=== PATIENT | female | born 1980 | race Two or more races ===

== ENCOUNTER 2020-10-01 13:50 | Outpatient (CLI) | payer OTHER | END 2020-10-01 13:51 | disposition home or self-care (01) | LOC: NUCLEAR 13:50 | PROVIDERS: ATTEND Internal Medicine Sports Medicine | DX: C73 Malignant neoplasm of thyroid gland (principal) | CPT/HCPCS: 79005; A9517 ==

== ENCOUNTER 2020-10-08 14:44 | Outpatient (CLI) | payer OTHER | END 2020-10-08 14:59 | disposition home or self-care (01) | LOC: NUCLEAR 14:44 | PROVIDERS: ATTEND Internal Medicine Sports Medicine | DX: C73 Malignant neoplasm of thyroid gland (principal); E89.0 Postprocedural hypothyroidism | CPT/HCPCS: 78018; 78020; A9528 ==

== ENCOUNTER 2021-10-28 13:29 | Outpatient (CLI) | payer OTHER | END 2021-10-28 13:30 | disposition home or self-care (01) | LOC: NUCLEAR 13:29 | PROVIDERS: ATTEND Internal Medicine Sports Medicine | DX: C73 Malignant neoplasm of thyroid gland (principal); E89.0 Postprocedural hypothyroidism | CPT/HCPCS: 78014; A9531 ==

== ENCOUNTER 2023-02-02 13:00 | Outpatient (CLI) | payer OTHER | END 2023-02-02 13:02 | disposition home or self-care (01) | LOC: NUCLEAR 13:00 | PROVIDERS: ATTEND Internal Medicine Sports Medicine | DX: C73 Malignant neoplasm of thyroid gland (principal) ==